=== PATIENT | male | born 1945 | race Caucasian/White ===

== ENCOUNTER → 2016-10-24 | Day surgery (SDC) | payer MEDICARE ==
[~2016-10-24] MED LIST: Lactated Ringers 1,000 ML IV SCH; Midazolam 1 MG/ML 2 ML SDV ONE; Propofol 200 MG/20 ML SDV ONE; fentaNYL 100 MCG/2 ML SDV ONE
[2016-10-24 09:12] VITALS: BP 118/69
--- NOTE | 2016-10-25 07:39 | OR ---
DATE OF PROCEDURE: 10/24/2016 PREOPERATIVE DIAGNOSIS: History of adenomatous colon polyps. POSTOPERATIVE DIAGNOSIS: Small colon polyps, proximal right colon; small colon polyp 80 cm from the anal verge. PROCEDURE: Colonoscopy to the cecum with biopsy resection of several small colon polyps. ANESTHESIA: IV anesthesia with monitored anesthesia care. INDICATION: This 71-year-old white male is referred for a colonoscopy because of a history of adenomatous colon polyps. His last colonoscopic exam was done over a year ago. I counseled him for the procedure including risks and alternatives, and he gave his informed consent to proceed. DESCRIPTION OF PROCEDURE: The patient was placed in the left lateral decubitus position. IV anesthesia was administered by the Anesthesia Service. Time-out was held. A rectal exam was performed, which was unremarkable. The flexible video Olympus colonoscope was introduced through his anus, up his rectum, and out his colon all the way to the cecum. Once the cecum was reached, the scope was slowly withdrawn examining the mucosa throughout. In the proximal right colon, we saw a couple of small polyps versus suction artifact. These were biopsied. The scope was withdrawn further with no other lesions noted until we reached about 80 cm from anal verge. Here, an obvious polyp was seen. This was small and was removed with a couple of bites of the biopsy forceps. The scope was withdrawn further with no other lesions noted. The scope was retroflexed in the rectum with the distal rectum appearing unremarkable. The scope was straightened and removed. He tolerated the procedure well. Adalberto Gagnon MD /[id number] JOSEFINA
== END ==
LOC: JP.SDS 06:22
PROVIDERS: ATTEND Surgery
DX: Z12.11 Encounter for screening for malignant neoplasm of colon (principal); D12.6 Benign neoplasm of colon, unspecified; D17.79 Benign lipomatous neoplasm of other sites; Z86.010 Personal history of colon polyps
CPT/HCPCS: 45380; 88305; J2250; J2704; J3010; J7120

== ENCOUNTER 2019-03-21 18:48 | Emergency (ER) | payer MEDICARE ==
[2019-03-21 19:38] VITALS: BP 150/83; PULSE 72
--- NOTE | 2019-03-21 20:26 | EDM.PDOC ---
ED HPI GENERAL MEDICAL PROBLEM - General Chief Complaint: Skin Complaint Stated Complaint: FELL Time Seen by Provider: 03/21/19 20:18 Source of Information: Reports: Patient, Family, RN Notes Reviewed History Limitations: Reports: No Limitations - History of Present Illness INITIAL COMMENTS - FREE TEXT/NARRATIVE: 73-year-old gentleman presents emergency department today with abrasions to his arms and legs unfortunately he fell into the septic tank while doing some yard work he was unable to get out stuck septic tank for about 20 minutes. He did wash best he could with soap and water but now he has some redness starting to develop around the areas where he had breaks the skin. No fevers Generalized Pain Score (Numeric/FACES): 2 - Related Data Allergies Allergy/AdvReac Type Severity Reaction Status Date / Time No Known Allergies Allergy Verified 03/21/19 19:57 Home Meds: Home Meds NK [No Known Home Meds] 03/21/19 [History] Past Medical History HEENT History: Reports: Hard of Hearing Cardiovascular History: Reports: Hypertension Gastrointestinal History: Reports: Colon Polyp Musculoskeletal History: Reports: Osteoarthritis Endocrine/Metabolic History: Reports: Other (See Below) Other Endocrine/Metabolic History: 25-30 years ago hyperthyroid - no medication - Infectious Disease History Infectious Disease History: Reports: Chicken Pox - Past Surgical History GI Surgical History: Reports: Colonoscopy, Hernia, Inguinal, Polypectomy Musculoskeletal Surgical History: Reports: Arthroscopic Knee, Ganglion Cyst Social & Family History - Family History HEENT: Reports: Cataract, Hearing Impairment, Macular Degeneration Cardiac: Reports: CAD, Stent Neurological: Reports: Parkinson's, Other (See Below) Other Neurological Family History: father: brain bleed unknow reason Endocrine/Metabolic: Reports: Hypothyroidism Oncologic: Reports: Breast, Lymphoma Other Oncologic Family History: Mother:breast. Sister Lymphoma - Tobacco Use Smoking Status *Q: Never Smoker Second Hand Smoke Exposure: No - Caffeine Use Caffeine Use: Reports: Coffee, Soda - Alcohol Use Days Per Week of Alcohol Use: 4 Number of Drinks Per Day: 1 Total Drinks Per Week: 4 - Recreational Drug Use Recreational Drug Use: No ED ROS GENERAL - Review of Systems Review Of Systems: See Below Constitutional: Denies: Fever Skin: Reports: Pallor, Rash, Erythema, Wound ED EXAM, SKIN/RASH Exam: See Below Text/Narrative:: Examination of integument systems he does have several areas of broken skin underneath each arm there is some erythema starting to develop on the left side there is also breaks in the skin on the lower extremities shins bilaterally, it is warm to the touch tender to the touch Exam Limited By: No Limitations General Appearance: Alert, WD/WN, No Apparent Distress Course - Vital Signs Last Recorded V/S: Last Vital Signs Temp 97.0 F 03/21/19 20:03 Pulse 72 03/21/19 20:03 Resp 16 03/21/19 20:03 BP 150/83 H 03/21/19 20:03 Pulse Ox 95 03/21/19 20:03 Departure - Departure Time of Disposition: 20:25 Disposition: Home, Self-Care 01 Condition: Fair Clinical Impression: Cellulitis of arm, left - Discharge Information Referrals: PCP,None [Primary Care Provider] - Additional Instructions: take full course of antibiotics use Tylenol or Motrin as needed for pain control , Please followup with your primary care provider in 3-5 days if not better, please call return to the emergency department with worsening of symptoms. - Assessment/Plan Plan: Assessment Acuity = acute Site and laterality = cellulitis left arm Etiology = breaking the skin with exposure to septic system Manifestations = none Location of injury = Home Lab values = none Plan Elected to start Bactrim DS one tab by mouth twice a day 10 days follow-up primary care in 3-5 days if no improvement This note was dictated using [employer] voice recognition software please call with any questions on syntax or grammar.
== END 2019-03-21 20:35 | disposition home or self-care (01) ==
LOC: JP.ED 18:48
DX: L03.114 Cellulitis of left upper limb (principal); I10 Essential (primary) hypertension
CPT/HCPCS: 99282; 99283